=== PATIENT | female | born 1945 | race Caucasian/White ===

== ENCOUNTER 2017-11-22 18:21 | Emergency (ER) | payer MEDICARE, MEDICAID ==
[~2017-11-22] VITALS: Ht 160 cm; Wt 90.9 kg
[2017-11-22 18:32] VITALS: BP 155/86; TEMP 98
[2017-11-22] MEDS ORDERED: XANAX .25M0.25 MG/TA PO ×2 (18:51→19:16)
[2017-11-22] MEDS ORDERED: WELLBUTRIN XL300 M1 PO (18:52)
[2017-11-22] MEDS ORDERED: PROZAC40 MG (18:52)
[2017-11-22] MEDS ORDERED: WELLBUTRIN SR150 M1 PO ×2 (18:52→19:16)
[2017-11-22] MEDS ORDERED: GEODON80 MG PO ×2 (18:53→19:16)
[2017-11-22] MEDS ORDERED: REGLAN 10MG10 MG/TAB PO (18:53)
[2017-11-22] MEDS ORDERED: ESBRIET267 MG PO (18:54)
[2017-11-22] MEDS ORDERED: NEURONTIN400 MG/CAP PO (18:56)
[2017-11-22] MEDS ORDERED: NEURONTIN300 MG/CAP PO (18:56)
[2017-11-22] MEDS ORDERED: PROZAC40 MG PO (19:16)
[2017-11-22 19:42] VITALS: PULSE 66
== END 2017-11-22 21:42 | disposition home or self-care (01) ==
LOC: COL.ER 18:21
DX: F31.9 Bipolar disorder, unspecified (principal); F41.9 Anxiety disorder, unspecified; Z98.51 Tubal ligation status; Z90.49 Acquired absence of other specified parts of digestive tract; Z90.89 Acquired absence of other organs; M19.90 Unspecified osteoarthritis, unspecified site

== ENCOUNTER 2018-04-01 11:44 | Emergency (ER) | payer MEDICARE, MEDICAID ==
[~2018-04-01] VITALS: Ht 160 cm; Wt 94.1 kg
[~2018-04-01 11:44] MED LIST: ESBRIET267 MG PO; GEODON80 MG PO; NEURONTIN300 MG/CAP PO; NEURONTIN400 MG/CAP PO; PROZAC40 MG; PROZAC40 MG PO; REGLAN 10MG10 MG/TAB PO; WELLBUTRIN SR150 M1 PO; WELLBUTRIN XL300 M1 PO; XANAX .25M0.25 MG/TA PO
[2018-04-01 11:53] VITALS: BP 144/69; TEMP 98.8
[2018-04-01 13:37] VITALS: PULSE 72
== END 2018-04-01 13:38 | disposition home or self-care (01) ==
LOC: COL.ER 11:44
DX: S63.614A Unspecified sprain of right ring finger, initial encounter (principal); F41.9 Anxiety disorder, unspecified; F32.9 Major depressive disorder, single episode, unspecified; Z90.89 Acquired absence of other organs; Z98.51 Tubal ligation status; Z98.890 Other specified postprocedural states; W01.0XXA Fall on same level from slipping, tripping and stumbling without subsequent striking against object, initial encounter; Y92.009 Unspecified place in unspecified non-institutional (private) residence as the place of occurrence of the external cause

== ENCOUNTER → 2018-07-20 | Outpatient (CLI) | payer MEDICARE | LOC: MC.RAD 11:37 | DX: Z12.31 Encounter for screening mammogram for malignant neoplasm of breast (principal) ==

== ENCOUNTER → 2018-07-27 | Outpatient (CLI) | payer MEDICARE | LOC: COL.VAS 11:15 | DX: J44.9 Chronic obstructive pulmonary disease, unspecified (principal); I51.7 Cardiomegaly ==